=== PATIENT | male | born 1995 | race Hispanic/Latino ===

== ENCOUNTER 2022-03-10 20:40 | Emergency (ER) | payer SELFPAY | END 2022-03-10 21:10 | disposition home or self-care (01) | LOC: BURERS 20:40 | DX: U07.1 COVID-19 (principal); F17.210 Nicotine dependence, cigarettes, uncomplicated | CPT/HCPCS: 99283; U0003; U0005 ==

== ENCOUNTER 2022-10-20 09:43 | Emergency (ER) | payer SELFPAY | END 2022-10-20 10:26 | disposition home or self-care (01) | LOC: BURERS 09:43 | DX: U07.1 COVID-19 (principal); F17.210 Nicotine dependence, cigarettes, uncomplicated | CPT/HCPCS: 99283; U0003; U0005 ==